=== PATIENT | male | born 1970 | race Caucasian/White ===

== ENCOUNTER 2018-02-02 06:36 | Emergency (ER) | payer BC ==
[2018-02-02] MEDS ORDERED: DIPHENHYDRAMINE HCL 50 MG/ML VIAL IV ONE (07:18)
[2018-02-02] MEDS ORDERED: METOCLOPRAMIDE HCL INJ/PF 10 MG/2 ML SDV IV ONE (07:19)
[2018-02-02] MEDS ORDERED: NORMAL SALINE 1000 ML 1,000 ML IV ONE (07:20)
--- NOTE | 2018-02-02 07:27 | ER Document Report ---
ED General - General Chief Complaint: Headache Stated Complaint: HEADACHE Time Seen by Provider: 02/02/18 07:11 Mode of Arrival: Ambulatory Information source: Patient Notes: 47-year-old male presents emergency department planes of a migraine headache. Patient states that it is a throbbing sensation behind the right eye. No radiation of the pain. Pain is worse with light and noise. No alleviating factors. Patient's tried Motrin without relief of symptoms. Patient denies any vision changes, speech changes, numbness, tingling, weakness. Patient notes that this headache has been going on for 3 days. He states that most of his migraine headaches do not typically last this long. Has had a MRI 2 years ago that showed some white matter changes. Patient is not concerned about subarachnoid hemorrhage. Patient states that this is more like his typical migraine headache. TRAVEL OUTSIDE OF THE [place] IN LAST 30 DAYS: No - HPI Onset: Other - 3 days Onset/Duration: Gradual Quality of pain: Achy, Throbbing Severity: Severe Pain Level: 4 Associated symptoms: None Exacerbated by: Other - light and sound Relieved by: Denies Similar symptoms previously: Yes Recently seen / treated by doctor: No - Related Data Allergies/Adverse Reactions: No Known Allergies Allergy (Verified 02/08/16 07:47) Past Medical History - Social History Smoking Status: Never Smoker Family History: Reviewed & Not Pertinent - Past Medical History Cardiac Medical History: Reports: Hx Hypercholesterolemia Denies: Hx Coronary Artery Disease, Hx Heart Attack, Hx Hypertension Pulmonary Medical History: Denies: Hx Asthma, Hx Bronchitis, Hx COPD, Hx Pneumonia, Hx Tuberculosis Neurological Medical History: Denies: Hx Cerebrovascular Accident, Hx Seizures Endocrine Medical History: Reports: Hx Diabetes Mellitus Type 2 - diet controlled Renal/ Medical History: Reports: Hx Kidney Stones Musculoskeltal Medical History: Denies Hx Arthritis Psychiatric Medical History: Denies: Hx Depression Past Surgical History: Reports: Hx Oral Surgery - wisdome teeth - Immunizations Hx Diphtheria, Pertussis, Tetanus Vaccination: Yes Review of Systems - Review of Systems Constitutional: No symptoms reported EENT: No symptoms reported, Other - headache Cardiovascular: No symptoms reported Respiratory: No symptoms reported Gastrointestinal: No symptoms reported Musculoskeletal: No symptoms reported Skin: No symptoms reported Neurological/Psychological: Other - blurred vision -: Yes All other systems reviewed and negative Physical Exam - Vital signs Vitals: Temp Pulse Resp BP Pulse Ox 98 F 72 18 146/85 H 97 02/02/18 06:36 02/02/18 06:36 02/02/18 06:36 02/02/18 06:36 02/02/18 06:36 Interpretation: Normal - Notes Notes: PHYSICAL EXAMINATION: GENERAL: Well-appearing, well-nourished and in no acute distress. HEAD: Atraumatic, normocephalic. EYES: Pupils equal round and reactive to light, extraocular movements intact, sclera anicteric, conjunctiva are normal. ENT: Moist mucous membranes. NECK: Normal range of motion LUNGS: Breath sounds clear to auscultation bilaterally and equal. No wheezes rales or rhonchi. HEART: Regular rate and rhythm without murmurs Musculoskeletal: Normal range of motion. NEUROLOGICAL: Cranial nerves grossly intact. Normal speech, normal gait. Normal sensory, motor exams PSYCH: Normal mood, normal affect. SKIN: Warm, Dry. Course - Re-evaluation Re-evalutation: 02/02/18 09:44 No neuro deficits on exam. Head CT negative. Patient given fluids, benadryl, reglan. On re-evaluation, headache improving but still present. Given toradol. On re-evaluation again, headache resolving. Patient feels comfortable with discharge home. 02/02/18 09:47 - Vital Signs Vital signs: Temp Pulse Resp BP Pulse Ox 98 F 72 18 146/85 H 97 02/02/18 06:36 02/02/18 06:36 02/02/18 06:36 02/02/18 06:36 02/02/18 06:36 Discharge - Discharge Clinical Impression: Migraine headache Qualifiers: Migraine type: unspecified Status migrainosus presence: with status migrainosus Intractability: not intractable Qualified Code(s): G43.901 - Migraine, unspecified, not intractable, with status migrainosus Condition: Good Disposition: HOME, SELF-CARE Instructions: Headache ([facility]), Toradol Injection ([facility]) Additional Instructions: Follow up with your primary care physician this week. Continue taking medication as directed. Return to the emergency department for worsening symptoms.
--- NOTE | 2018-02-02 08:19 | RADIOLOGY REPORT (SQ) ---
EXAM DESCRIPTION: CT HEAD WITHOUT COMPLETED DATE/TIME: 02/02/2018 8:02 am REASON FOR STUDY: headache COMPARISON: None. TECHNIQUE: Axial images acquired through the brain without intravenous contrast. Images reviewed wi th bone, brain and subdural windows. Additional sagittal and coronal reconstructions were generated. Images stored on PACS. All CT scanners at this facility use dose modulation, iterative reconstruction, and/or weight based d osing when appropriate to reduce radiation dose to as low as reasonably achievable (ALARA). [facility]: Dose Right [facility]: CareDose [facility]: Dose Right [facility]: Teradose 4D [facility]: [email or web address] RADIATION DOSE: CT Rad equipment meets quality standard of care and radiation dose reduction techniq ues were employed. CTDIvol: 53.2 mGy. DLP: 1044 mGy-cm. mGy. LIMITATIONS: None. FINDINGS: VENTRICLES: Normal size and contour. CEREBRUM: No masses. No hemorrhage. No midline shift. No evidence for acute infarction. Normal gra y/white matter differentiation. No areas of low density in the white matter. CEREBELLUM: No masses. No hemorrhage. No alteration of density. No evidence for acute infarction. EXTRAAXIAL SPACES: No fluid collections. No masses. ORBITS AND GLOBE: No intra- or extraconal masses. Normal contour of globe without masses. CALVARIUM: No fracture. PARANASAL SINUSES: No fluid or mucosal thickening. SOFT TISSUES: No mass or hematoma. OTHER: No other significant finding. IMPRESSION: NORMAL BRAIN CT WITHOUT CONTRAST. EVIDENCE OF ACUTE STROKE: NO. COMMENT: Quality ID # [id number]: Final reports with documentation of one or more dose reduction techniques (e.g., Automated exposure control, adjustment of the mA and/or kV according to patient size, use of iterative reconstruction technique) TECHNICAL DOCUMENTATION: JOB ID: [id number] [employer]- All Rights Reserved Reading location - IP/workstation name: [email or web address]
[2018-02-02] MEDS ORDERED: KETOROLAC TROMETHAMINE INJ/PF 30 MG/1 ML SDV IV ONE (08:41)
[2018-02-02 09:48] VITALS: BP 135/75
== END 2018-02-02 09:48 | disposition home or self-care (01) ==
LOC: ER 06:36
DX: G43.901 Migraine, unspecified, not intractable, with status migrainosus (principal); E78.00 Pure hypercholesterolemia, unspecified; E11.9 Type 2 diabetes mellitus without complications
CPT/HCPCS: 99284; 96361; 96374; 96375; 70450; J1200; J1885; J2765; J7030

== ENCOUNTER 2019-03-04 07:01 | Day surgery (SDC) | payer BC ==
[2019-03-04] MEDS ORDERED: PROPOFOL INJ 200 MG/20 ML VIAL IV ONE (07:49)
[2019-03-04 08:33] VITALS: BP 136/75
--- NOTE | 2019-03-04 11:41 | Operative Report ---
Operative Report DATE OF SURGERY: 03/04/19 Operative Report: The risks benefits and alternatives of the procedure explained to the patient in detail and informed consent is obtained.A GIF Olympus video scope was inserted into the patient's mouth and hypopharynx, the esophagus is identified intubated and insufflated ,the scope was then advanced through the esophagus stomach and duodenum, retroflexion maneuver is done, the esophagus stomach and first and second portions of the duodenum examined. PREOPERATIVE DIAGNOSIS: Gastroesophageal reflux disease. Personal history of Lebron's esophagus POSTOPERATIVE DIAGNOSIS: No further Lebron's esophagus noted. Gastritis status post biopsy OPERATION: EGD with biopsy SURGEON: YAMIL HERNANDEZ ANESTHESIA: LMAC TISSUE REMOVED OR ALTERED: As noted above. COMPLICATIONS: None. ESTIMATED BLOOD LOSS: None. INTRAOPERATIVE FINDINGS: As noted above. PROCEDURE: Patient tolerated the procedure well. No immediate postprocedure complications are noted. Patient is discharged in good condition. Discharge date 03/04/2019. Discharge diet: Regular. Discharge activity: Regular. 2 to 3-week follow-up to discuss findings. Patient is instructed to call the office or proceed to the emergency room should there be any further questions.
== END 2019-03-04 08:38 | disposition home or self-care (01) ==
LOC: END 07:01
PROVIDERS: ATTEND Internal Medicine Gastroenterology
DX: K29.50 Unspecified chronic gastritis without bleeding (principal); G47.30 Sleep apnea, unspecified; Z09 Encounter for follow-up examination after completed treatment for conditions other than malignant neoplasm; Z87.19 Personal history of other diseases of the digestive system; E11.9 Type 2 diabetes mellitus without complications
CPT/HCPCS: 82962; 88342 ×2; 88305 ×2; 00731; J2704; 43239; 731

== ENCOUNTER → 2019-11-01 | Outpatient (CLI) | payer BC ==
--- NOTE | 2019-11-01 08:39 | ER RDC ASSESSMENT REPORT ---
Intake - In the Last 14 days Have you been in close contact with someone CONFIRMED: No Worked in Healthcare?: Yes - Symptoms Subjective Fever(Dewitt feverish): Yes Chills: Yes Muscule Aches: Yes Runny Nose: Yes Sore Throat: Yes Cough (New or worsening chronic cough): Yes --How many day(s)?: reports a clear productive cough since 10/30/2019 Shortness of breath: Yes --How many day(s)?: reports SOB with Activity. Chest feels heavy Nausea or Vomiting: Yes --How many day(s)?: nausea no vomiting Headache: No Abdominal Pain: No Diarrhea(3 or more loose stools in last 24 hours): No - Do you have any of the following Chronic lung disease: Asthma or emphysema or COPD: No Cystic Fibrosis: No Diabetes: Yes High Blood Pressure: Yes High Blood Pressure Comment: Hx of HTN and Hyperlipidemia Cardiovascular Disease: Yes Chronic Kidney Disease: No Chronic Liver Disease: No Chronic blood disorder like Sickle Cell Disease: No Weak immune system due to disease or medication: No Neurologic condition that limits movement: No Developmental delay - Moderate to Severe: No Recent (within past 2 weeks) or current : No Morbid Obesity (>100 pounds over ideal weight): No Other Comment: reports history of Sleep apnea and Cervica DJDl - Objective Temperature: 98.6 F Pulse Rate: 81 Respiratory Rate: 20 Blood Pressure: 133/66 O2 Sat by Pulse Oximetry: 94 Objective: Given above, testing performed: If Testing Performed: Test Specimen Type Sent to General - General Information source: Patient Notes: Patient here today for Covid testing recent history of upper respiratory symptoms since Thursday. Reports a history of cardiovascular disease high blood pressure and hyperlipidemia does have a history of sleep apnea with his respiratory symptoms he does report a productive cough that is clear some shortness of breath with activity and chest tightness. - Related Data Allergies/Adverse Reactions: No Known Allergies Allergy (Verified 03/04/19 07:05) Past Medical History - Social History Smoking Status: Never Smoker Family History: Reviewed & Not Pertinent - Past Medical History Cardiac Medical History: Reports: Hx Hypercholesterolemia, Hx Hypertension Denies: Hx Coronary Artery Disease, Hx Heart Attack Pulmonary Medical History: Denies: Hx Asthma, Hx Bronchitis, Hx COPD, Hx Pneumonia, Hx Tuberculosis Neurological Medical History: Reports: Hx Migraine. Denies: Hx Cerebrovascular Accident, Hx Seizures Endocrine Medical History: Reports: Hx Diabetes Mellitus Type 2 - diet controlled Renal/ Medical History: Reports: Hx Kidney Stones. Denies: Hx Peritoneal Dialysis Musculoskeletal Medical History: Denies Hx Arthritis Psychiatric Medical History: Denies: Hx Depression Past Surgical History: Reports: Hx Oral Surgery - wisdome teeth Physical Exam - General In distress: None Notes: PHYSICAL EXAMINATION: GENERAL: Well-appearing and in no acute distress. HEAD: Atraumatic, normocephalic. EYES: sclera anicteric, conjunctiva are normal. ENT: nares patent. Moist mucous membranes. NECK: Normal range of motion, supple without lymphadenopathy LUNGS: CTAB and equal. No wheezes rales or rhonchi. HEART: Regular rate and rhythm without murmurs ABDOMEN: Soft, nontender, normal bowel sounds, no guarding. NEUROLOGICAL: Normal speech. PSYCH: Normal mood, normal affect. SKIN: Warm, Dry, normal turgor. - Respiratory Breath sounds: Normal Diagnostic Results Laboratory Results: Patient informed of negative rapid strep negative rapid flu results. Pending strep culture. Pending COVID-19 results. Covid instructions provided including: As a person under investigation for Covid 19, the [place] department of Health and Human Services, division of public health advises you to adhere to the following guidance until your test results are reported to you. If your test result is positive, you will receive additional information from your provider and your local health department at that time. Remain at home until you are cleared by the health provider or public health authorities. Keep a log of visitors to your home, notify any visitors to your home of your isolation status. If you plan to move to a new address or leave the [facility], notify the local health department in your County. Call your doctor or seek care if you have an urgent medical need. Before seeking medical care, call ahead to get instructions from the provider before arriving at the medical office clinic or hospital. Notify them that you are being tested for the virus that causes Covid 19 so that arrangements can be made, as necessary, to prevent transmission to others in the healthcare setting. Next, notify the local health department in your county. If a medical emergency arises and you need to call 911, inform the first responders that you are being tested for the virus that causes Covid 19. Next, notify the local health department in your county. Patient Education/Counseling Guidance for worsening S/SX: Patient presents with upper respiratory symptoms worrisome for possible Covid 19. Patient does not have emergency worring symptoms such as difficulty breathing, shortness of breath, chest pain, pressure, confusion or cyanosis. Patient appears suitable for discharge. Patient's vital signs are stable and patient is nontoxic in appearance. Good return precautions have been discussed with patient, patient verbalized understanding and is agreeable with discharge plan of care at this time. Intructed to follow up with PCP and if symptoms persist or worsen to go to the ED. RDC Discharge - Discharge Clinical Impression: COVID 19 Screening URI (upper respiratory infection) Qualifiers: URI type: unspecified URI Qualified Code(s): J06.9 - Acute upper respiratory infection, unspecified Condition: Stable Disposition: Home; Selfcare
[2019-11-01 08:54] VITALS: BP 133/66
[2019-11-01 09:14] LABS: A TYPE INFLUENZA AG NEGATIVE (NEGATIVE); B INFLUENZA AG NEGATIVE (NEGATIVE)
== END ==
LOC: RDC 08:01
PROVIDERS: ATTEND Nurse Practitioner Family
DX: J06.9 Acute upper respiratory infection, unspecified (principal); Z20.828 Contact with and (suspected) exposure to other viral communicable diseases
CPT/HCPCS: 87070; 87635; 87804; 87880; 99211

== ENCOUNTER → 2020-08-02 | Outpatient (CLI) | payer BC ==
[~2020-08-02] MED LIST: COVID-19 VACCINE (PFIZER)/PF 30 MCG/0.3 ML VIAL IM ONE; EPINEPHRINE INJ/PF 1 MG/1 ML AMPULE IM PRN
== END ==
LOC: EMPHEALTH 06:59
PROVIDERS: ATTEND Internal Medicine
DX: Z23 Encounter for immunization (principal)
CPT/HCPCS: 91300

== ENCOUNTER → 2020-08-23 | Outpatient (CLI) | payer BC ==
--- OUTSIDE RECORDS SUMMARY | 2020-08-23 06:52 | XMS REPORT ---
:1970 Author Organization [facility] Address [facility] [address] [place] [address] Care Team Providers Name Role Phone Nader Carlos Attending Clinician Unavailable Ginna Ramírez Attending Clinician Unavailable Allergies, Adverse Reactions, Alerts This patient has no known allergies or adverse reactions. Medications This patient has no known medications. Problems Condition Condition Condition Status Onset Resolution Last Treatin g Comments Name Details Category Date Date Treatment Clinician Date Not on file Not on file [id number] Procedures Procedure Date / Time Performed Performing Clinician Devic e OFFICE/OUTPATIENT VISIT EST 2019-09-14 09:00:00 OFFICE/OUTPATIENT VISIT EST 2018-11-25 08:00:00 Results Test Description Test Time Test Comments Text Results Atomic Results Result Comments SARS-CoV-2 RNA Resp Ql GURDEEP+probe 2020-07-26 00:00:00 Test Item Value Reference Range Comments SARS-CoV-2 RNA Resp Ql GURDEEP+probe Not detected [facility] Case ID: (test code = 96898-5) [id number] SARS-CoV-2, GURDEEP\S\2020-07-23 12:07:00 Test Item Value Reference Range Comments SARS-CoV-2, GURDEEP (test code = 33950-9) Not Detected Not Detect ed Specimen Identification Status\S\2020-07-23 12:07:[id number] RNA Resp Ql GURDEEP+[id number] 00:00:00 Test Item Value Reference Range Comments SARS-CoV-2 RNA Resp Ql Not detected [facility] Case GURDEEP+probe (test code = ID: [id number] 21686-3) SARS-CoV-2 RNA Resp Ql GURDEEP+[id number] 00:00:00 Test Item Value Reference Range Comments SARS-CoV-2 RNA Resp Ql Not detected [facility] Case GURDEEP+probe (test code = ID: [id number] 1598 00968-1) SARS CoV 2 RNA(COVID 19), QUALITATIVE [id number] 11:28:00Not Detected SPECIMEN ID NOTIFICATION MISSING SECOND [id number] 11:28:00See [id number] RNA XXX GURDEEP+alptw-Lum3231-24-01 00:00:00 Test Item Value Reference Range Comments 2019-nCoV RNA XXX Not detected [place] [facility] Case GURDEEP+probe-Imp (test code = ID: 1 [id number] 62841-6) TSH W/REFLEX TO [id number] 08:18:001.72ALBUMIN, RANDOM URINE W/O CREATININE 2019-09-22 08:18:00 Test Item Value Reference Range Comments [id number] (test code = 59888535) See Below ALBUMIN, URINE (test code = 03115051) 0.2 mg/dL CBC (INCLUDES DIFF/PLT)2019-09-22 08:18:00 Test Item Value Reference Range Comments ABSOLUTE BASOPHILS (test code = 96861064) 32 cells/uL 0-200 MCHC (test code = 50315351) 34.2 g/dL 32.0-36.0 RDW (test code = 90231012) 13.2 % 11.0-15.0 HEMOGLOBIN (test code = 43972614) 14.7 g/dL 13.2-17.1 PLATELET COUNT (test code = 02188502) 203 Thousand/uL 140-400 ABSOLUTE EOSINOPHILS (test code = 70281881) 101 cells/uL 15-5 00 ABSOLUTE NEUTROPHILS (test code = 85238433) 3307 cells/uL 1500 -7800 MCV (test code = 73975065) 86.7 fL 80.0-100.0 ABSOLUTE LYMPHOCYTES (test code = 75077051) 1362 cells/uL 850- 3900 MPV (test code = 59265828) 11.4 fL 7.5-12.5 HEMATOCRIT (test code = 65316237) 43.0 % 38.5-50.0 EOSINOPHILS (test code = 45404125) 1.9 % MCH (test code = 44242328) 29.6 pg 27.0-33.0 MONOCYTES (test code = 81391022) 9.4 % LYMPHOCYTES (test code = 71381164) 25.7 % BASOPHILS (test code = 97416689) 0.6 % NEUTROPHILS (test code = 83778473) 62.4 % RED BLOOD CELL COUNT (test code = 66793553) 4.96 Million/uL 4.20 -5.80 WHITE BLOOD CELL COUNT (test code = 5.3 Thousand/uL 3.8-10.8 90721158) ABSOLUTE MONOCYTES (test code = 66033296) 498 cells/uL 200-95 0 Hemoglobin A1C\S\2019-09-14 09:00:00 Test Item Value Reference Range Comments HgbA1C, Fingerstick (test code = 4548-4) 7.8 % 4-5.6 GLUCOSE,BEDSIDE\S\[id number] 07:09:00 Test Item Value Reference Range Comments GLUCOSE,BEDSIDE (test code = GLUBS) 117 mg/dL 70-110 LIPID PANEL WITH REFLEX TO DIRECT [id number] 08:18:00 Test Item Value Reference Range Comments NON HDL CHOLESTEROL (test code = 98947834) 140 mg/dL (calc) <130 CHOLESTEROL, TOTAL (test code = 91142128) 176 mg/dL <200 CHOL/HDLC RATIO (test code = 84005872) 4.9 (calc) <5.0 HDL CHOLESTEROL (test code = 32922158) 36 mg/dL >40 TRIGLYCERIDES (test code = 52461212) 147 mg/dL <150 LDL-CHOLESTEROL (test code = 39964227) 114 mg/dL (calc) CBC (INCLUDES DIFF/PLT)2018-11-19 08:18:00 Test Item Value Reference Range Comments RDW (test code = 02150378) 13.1 % 11.0-15.0 LYMPHOCYTES (test code = 29766362) 23.1 % HEMATOCRIT (test code = 72256704) 43.9 % 38.5-50.0 ABSOLUTE BASOPHILS (test code = 26391285) 30 cells/uL 0-200 MCHC (test code = 34006580) 33.7 g/dL 32.0-36.0 MCH (test code = 94666511) 29.1 pg 27.0-33.0 WHITE BLOOD CELL COUNT (test code = 6.0 Thousand/uL 3.8-10.8 23761095) ABSOLUTE EOSINOPHILS (test code = 53546458) 192 cells/uL 15-5 00 MCV (test code = 41895562) 86.4 fL 80.0-100.0 EOSINOPHILS (test code = 61970687) 3.2 % MONOCYTES (test code = 02496764) 8.7 % HEMOGLOBIN (test code = 75613607) 14.8 g/dL 13.2-17.1 PLATELET COUNT (test code = 82716295) 219 Thousand/uL 140-400 ABSOLUTE LYMPHOCYTES (test code = 15115738) 1386 cells/uL 850- 3900 ABSOLUTE NEUTROPHILS (test code = 20499763) 3870 cells/uL 1500 -7800 NEUTROPHILS (test code = 51899967) 64.5 % MPV (test code = 78465887) 11.0 fL 7.5-12.5 RED BLOOD CELL COUNT (test code = 39480965) 5.08 Million/uL 4.20 -5.80 BASOPHILS (test code = 48951693) 0.5 % ABSOLUTE MONOCYTES (test code = 57153100) 522 cells/uL 200-95 0 COMPREHENSIVE METABOLIC [id number] 08:18:00 Test Item Value Reference Range Comments ALBUMIN/GLOBULIN RATIO (test code = 1.7 (calc) 1.0-2.5 97681219) BUN/CREATININE RATIO (test code = NOT APPLICABLE (calc) 6-22 61358114) eGFR NON-AFR. CYMRO (test code = 91 mL/min/1.73m2 > OR = 60 34125697) PROTEIN, TOTAL (test code = 23523225) 7.5 g/dL 6.1-8.1 ALT (test code = 05503285) 43 U/L 9-46 eGFR (test code = 105 mL/min/1.73m2 > OR = 60 32225930) GLUCOSE (test code = 01677573) 111 mg/dL 65-99 POTASSIUM (test code = 89163752) 4.6 mmol/L 3.5-5.3 AST (test code = 87952120) 31 U/L 10-35 SODIUM (test code = 71784228) 141 mmol/L 135-146 GLOBULIN (test code = 11395382) 2.8 g/dL (calc) 1.9-3.7 CARBON DIOXIDE (test code = 93191131) 29 mmol/L 20-32 CHLORIDE (test code = 35197613) 105 mmol/L 98-110 CALCIUM (test code = 17491822) 9.6 mg/dL 8.6-10.3 UREA NITROGEN (BUN) (test code = 18 mg/dL 7-25 55510353) CREATININE (test code = 12865323) 0.97 mg/dL 0.70-1.33 ALKALINE PHOSPHATASE (test code = 61 U/L 40-115 20619522) ALBUMIN (test code = 24896468) 4.7 g/dL 3.6-5.1 BILIRUBIN, TOTAL (test code = 0.5 mg/dL 0.2-1.2 09979389) HEMOGLOBIN A1c WITH [id number] 08:18:00 Test Item Value Reference Range Comments HEMOGLOBIN A1c (test code = 02629552) 7.0 % of total Hgb <5.7 eAG (mg/dL) (test code = 64498594) 154 (calc) eAG (mmol/L) (test code = 48482074) 8.5 (calc) [id number] 08:18:001.98HEMOGLOBIN A1c WITH [id number] 09:51:00 Test Item Value Reference Range Comments eAG (mmol/L) (test code = 54591174) 8.4 (calc) eAG (mg/dL) (test code = 89772325) 151 (calc) HEMOGLOBIN A1c (test code = 84779120) 6.9 % of total Hgb <5.7 LIPID [id number] 09:51:00 Test Item Value Reference Range Comments NON HDL CHOLESTEROL (test code = 79124429) 124 mg/dL (calc) <130 HDL CHOLESTEROL (test code = 55424730) 40 mg/dL >40 TRIGLYCERIDES (test code = 43278594) 116 mg/dL <150 LDL-CHOLESTEROL (test code = 21419758) 103 mg/dL (calc) CHOL/HDLC RATIO (test code = 23398958) 4.1 (calc) <5.0 CHOLESTEROL, TOTAL (test code = 77009177) 164 mg/dL <200 [id number] 09:51:002.20CBC (H/H, RBC, INDICES, WBC, PLT)2017-11-02 09:51:00 Test Item Value Reference Range Comments MCHC (test code = 68159519) 33.3 g/dL 32.0-36.0 MCH (test code = 75866670) 29.4 pg 27.0-33.0 WHITE BLOOD CELL COUNT (test code = 6.8 Thousand/uL 3.8-10.8 01369334) MPV (test code = 54856158) 11.3 fL 7.5-12.5 HEMOGLOBIN (test code = 75174301) 14.5 g/dL 13.2-17.1 PLATELET COUNT (test code = 06908913) 215 Thousand/uL 140-400 HEMATOCRIT (test code = 94866605) 43.6 % 38.5-50.0 MCV (test code = 21155563) 88.3 fL 80.0-100.0 RDW (test code = 63991018) 13.0 % 11.0-15.0 RED BLOOD CELL COUNT (test code = 22688188) 4.94 Million/uL 4.20 -5.80 COMPREHENSIVE METABOLIC [id number] 09:51:00 Test Item Value Reference Range Comments UREA NITROGEN (BUN) (test code = 16 mg/dL 7-25 35254335) ALKALINE PHOSPHATASE (test code = 69 U/L 40-115 40934164) CREATININE (test code = 44804714) 1.03 mg/dL 0.60-1.35 PROTEIN, TOTAL (test code = 29597874) 7.5 g/dL 6.1-8.1 CARBON DIOXIDE (test code = 96209710) 29 mmol/L 20-31 SODIUM (test code = 64057329) 140 mmol/L 135-146 eGFR NON-AFR. CYMRO (test code = 85 mL/min/1.73m2 > OR = 60 84897759) ALT (test code = 20813125) 29 U/L 9-46 ALBUMIN (test code = 48048673) 4.5 g/dL 3.6-5.1 CHLORIDE (test code = 14620065) 105 mmol/L 98-110 ALBUMIN/GLOBULIN RATIO (test code = 1.5 (calc) 1.0-2.5 33530566) BILIRUBIN, TOTAL (test code = 0.5 mg/dL 0.2-1.2 34063603) CALCIUM (test code = 00489138) 9.3 mg/dL 8.6-10.3 GLUCOSE (test code = 60434837) 124 mg/dL 65-99 POTASSIUM (test code = 00482122) 4.1 mmol/L 3.5-5.3 AST (test code = 85018427) 30 U/L 10-40 GLOBULIN (test code = 36080894) 3.0 g/dL (calc) 1.9-3.7 eGFR (test code = 98 mL/min/1.73m2 > OR = 60 90426693) BUN/CREATININE RATIO (test code = NOT APPLICABLE (calc) 6-22 83225418) MICROALBUMIN, RANDOM URINE (W/CREATININE)2017-11-02 09:51:00 Test Item Value Reference Range Comments MICROALBUMIN (test code = 06005391) 0.2 mg/dL MICROALBUMIN/CREATININE RATIO, RANDOM URINE 2 mcg/mg creat <30 (test code = 76489946) CREATININE, RANDOM URINE (test code = 105 mg/dL 20-370 40965840) Hemoglobin A1c with [id number] 08:10:00 Test Item Value Reference Range Comments Hemoglobin A1C (test code = 234190) 6.3 % <5.7 eAG (calc) (test code = 601959) 134 mg/dL Lipid [id number] 08:10:00 Test Item Value Reference Range Comments Total Chol/HDL Ratio (test code = 651352) 4.0 Ratio <=5.0 Triglycerides (test code = 227247) 118 mg/dL <150 VLDL Cholesterol (Calc) (test code = 682814) 24 mg/dL <30 Cholesterol (test code = 172279) 182 mg/dL 125-200 LDL Cholesterol (Calc) (test code = 139902) 112 mg/dL <130 HDL Cholesterol (test code = 459945) 46 mg/dL >=40 CMP with Estimated [id number] 08:10:00 Test Item Value Reference Range Comments Alkaline Phosphatase (test code = 351481) 66 U/L 40-115 Creatinine (test code = 848346) 0.90 mg/dL 0.60-1.35 AST/SGOT (test code = 347300) 27 U/L 10-40 BUN (test code = 762366) 13 mg/dL 7-25 Calcium (test code = 018222) 9.4 mg/dL 8.6-10.3 Chloride (test code = 933289) 103 mmol/L 98-110 CO2 (test code = 363620) 24 mmol/L 20-31 Potassium (test code = 804335) 4.3 mmol/L 3.5-5.3 ALT/SGPT (test code = 061957) 34 U/L 9-46 Est GFR, (test code = 196921) >89 mL/min > =60 Albumin (test code = 997675) 4.5 g/dL 3.6-5.1 Total Protein (test code = 252013) 7.5 g/dL 6.1-8.1 Glucose (test code = 777009) 111 mg/dL 65-99 Sodium (test code = 132469) 140 mmol/L 135-146 Bilirubin, Total (test code = 482233) 0.7 mg/dL 0.2-1.2 Est GFR, NonAfrican Azerbaijani (test code = 772569) >89 mL/min >=60 Assessments Condition Name Status Diagnosis Date Treating Clinici an Essential (primary) hypertension Active Encounter for screening for respiratory Active tuberculosis Hyperlipidemia, unspecified Active Type 2 diabetes mellitus with other Active specified complication Type 2 diabetes mellitus without Active complications Essential (primary) hypertension Active Hyperlipidemia, unspecified Active Migraine w/o aura, not intractable, w/o Active status migrainosus Encounters Start End Encounter Admission Attending Care Care Encounter Date/Time Date/Time Type Type Clinicians Facility Department ID 2019-11-01 2019-11-01 Outpatient [facility] [id number] 00:00:00 00:00:00 201911012019-10-31 2019-10-31 Outpatient [facility] [id number] 00:00:00 00:00:00 2019-10-31 2019-10-31 Outpatient [facility] [id number] 00:00:00 00:00:00 2019-09-14 2019-09-14 Outpatient Terrance [facility] [id number] 09:00:00 09:00:00 Nader Villanueva -[id number] s [id number] and 127 [facility], 2018-11-25 2018-11-25 Outpatient Darrell [facility] [id number] 08:00:00 08:00:00 Ginna Children [id number] s [id number] and [id number], Plan of Treatment Planned Activity Planned Date Details Comments Future Scheduled Test [code = ] Future Scheduled Test [code = ] Future Scheduled Test [code = ] Future Scheduled Test [code = ] Social History This patient has no known social history. Vital Signs This patient has no known vital signs.
== END ==
LOC: EMPHEALTH 06:49
PROVIDERS: ATTEND Internal Medicine
DX: Z23 Encounter for immunization (principal)
CPT/HCPCS: 91300